=== PATIENT | male | born 1950 | race American Indian/Alaskan Native ===

== ENCOUNTER 2016-08-23 23:16 | Emergency (ER) | payer OTHER, MEDICARE ==
[2016-08-23 23:47] VITALS: BP 129/80
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
[2016-08-24] MEDS ORDERED: ROXICODONE PO ONE (05:11)
--- NOTE | 2016-08-24 07:52 | XRay Report ---
LUMBOSACRAL SPINE, 3 VIEWS: History: Back pain Findings: Normal bone mineralization. Normal height and alignment of the vertebral bodies. No compression deformity or bone lesion. There is mild to moderate diffuse facet arthropathy which is most pronounced at L4-5 and L5-S1. There is moderate disc space narrowing at L5-S1. The remaining disc levels are within normal limits. Impression: Lumbar spondylosis as described. No acute process noted.
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
== END 2016-08-24 08:04 | disposition home or self-care (01) ==
LOC: ED 23:16
DX: S39.012A Strain of muscle, fascia and tendon of lower back, initial encounter (principal); M25.511 Pain in right shoulder; I10 Essential (primary) hypertension; I25.2 Old myocardial infarction; I50.9 Heart failure, unspecified; V89.2XXA Person injured in unspecified motor-vehicle accident, traffic, initial encounter; Y93.9 Activity, unspecified; Y99.9 Unspecified external cause status; Y92.410 Unspecified street and highway as the place of occurrence of the external cause; Z88.6 Allergy status to analgesic agent
CPT/HCPCS: 72100

== ENCOUNTER 2017-04-18 16:02 | Emergency (ER) | payer MEDICARE | END 2017-04-18 17:00 | LOC: ED 16:02 | DX: M79.606 Pain in leg, unspecified (principal); Z53.21 Procedure and treatment not carried out due to patient leaving prior to being seen by health care provider ==

== ENCOUNTER 2017-08-21 13:07 | Emergency (ER) | payer MEDICARE ==
[2017-08-21 14:06] VITALS: BP 110/69
[2017-08-21 15:53] LABS: Basophils % (Auto) 0.8 % (0.0-1.8); Eosinophils # (Auto) 0.1 K/mm3 (0.0-0.4); Eosinophils % (Auto) 2.7 % (0.0-4.3); Hematocrit 38.1 % (35.5-45.6); Hemoglobin 12.8 gm/dl (11.8-15.2); Lymphocytes # (Auto) 2.5 K/mm3 (1.2-5.4); Lymphocytes % (Auto) 45.1 % (13.4-35.0); Mean Corpuscular HGB Conc 34 % (32-34); Mean Corpuscular Hemoglobin 32 pg (28-32); Mean Corpuscular Volume 94 fl (84-94); Monocytes # (Auto) 0.6 K/mm3 (0.0-0.8); Platelet Count 168 K/mm3 (140-440); Red Blood Count 4.05 M/mm3 (3.65-5.03); Red Cell Distribution Width 14.1 % (13.2-15.2)
[2017-08-21 16:07] LABS: Alanine Aminotransferase 30 units/L (7-56); Albumin 3.9 g/dL (3.9-5); BUN/Creatinine Ratio 15; Blood Urea Nitrogen 17 mg/dL (9-20); Calcium 9.4 mg/dL (8.4-10.2); Hemolysis Index 4
[2017-08-21] MEDS ORDERED: LASIX PO ONE (16:57)
[2017-08-21] MEDS ORDERED: PROVENTIL IH ONE (16:58)
--- NOTE | 2017-08-21 17:00 | Event Note ---
Date: 08/21/17 Patient is a 67-year-old male comes in with shortness of breath history of heart failure. I will order troponin, blood work, chest xray and ekg and breathing treatment on him and give him oral Lasix.
--- NOTE | 2017-08-21 17:05 | XRay Report ---
FINAL REPORT EXAM: XR CHEST ROUTINE 2V HISTORY: dyspnea TECHNIQUE: PA and lateral views of the chest PRIORS: None. FINDINGS: Lines, tubes, and devices: Single lead left subclavian pacemaker terminates in the right ventricle. Lungs and pleura: Trachea is normal in position. Lungs are clear of infiltrate, pleural effusion, vascular congestion, or pneumothorax. Cardiomediastinal silhouette: Cardiac and mediastinal silhouettes are unremarkable. Aorta is unfolded, likely age related. Elevation of the left hemidiaphragm is noted. Other: Bony structures are intact. IMPRESSION: No acute cardiopulmonary process seen.
[2017-08-21] MEDS ORDERED: LIDODERM 5% TD ONE (17:20)
== END 2017-08-22 01:15 | disposition left against medical advice (07) ==
LOC: ED 13:07
DX: M54.9 Dorsalgia, unspecified (principal); R06.02 Shortness of breath; Z53.21 Procedure and treatment not carried out due to patient leaving prior to being seen by health care provider
CPT/HCPCS: 36415; 71046; 80053; 83880; 85025; 93005; 93010

== ENCOUNTER 2017-12-20 18:39 | Emergency (ER) | payer MEDICARE ==
[2017-12-20 19:04] VITALS: BP 120/70
[2017-12-20] MEDS ORDERED: ASPIRIN PO ONE (19:04)
[2017-12-20 19:40] LABS: BUN/Creatinine Ratio 11; Blood Urea Nitrogen 11 mg/dL (9-20); Calcium 8.7 mg/dL (8.4-10.2); Hemolysis Index 23
== END 2017-12-20 19:00 | disposition left against medical advice (07) ==
LOC: ED 18:39
DX: R06.02 Shortness of breath (principal); R07.9 Chest pain, unspecified; Z53.21 Procedure and treatment not carried out due to patient leaving prior to being seen by health care provider
CPT/HCPCS: 36415; 80048; 83880; 84484; 93005; 93010

== ENCOUNTER 2018-07-29 05:39 | Emergency (ER) | payer MEDICARE ==
[2018-07-29 06:11] VITALS: BP 0/0
--- NOTE | 2018-07-29 06:40 | Emergency Department Report ---
ED CPR HPI - General Chief Complaint: Cardiac Arrest/CPR Stated Complaint: CARDIAC ARREST Time Seen by Provider: 07/29/18 06:33 Source: patient Mode of arrival: Stretcher Limitations: Physical Limitation - History of Present Illness Initial Comments: 67-year-old male with multiple medical problems presents also with shortness of breath. Upon EMS arrival patient was in distress and was briefly placed on CPAP. Patient's symptoms quickly deteriorated and he became apneic and pulseless. Patient was intubated with a Mathieu airway. He received 2 defibri llator shocks for V. tach/v fib, EMS reports that patient's own AICD was also shocking the patient. Patient presents with PEA and apnea MD Complaint: stopped breathing Place: home Bystander CPR Performed: Yes Number of Shocks Delivered: 2 Downtime Before ACLS Arrival (mins): 0 Initial Findings in the Field: alert ROSC in the Field: No Associated Injuries: No Associated Symptoms: shortness of breath Treatments Prior to Arrival: other airway device (mathieu tube), defribrillated shocks # (2), epinephrine mgs # (2) - Related Data Home Medications Medication Instructions Recorded Confirmed Last Taken RX: Allopurinol [Zyloprim] 100 mg PO QDAY 01/15/18 05/03/18 05/02/18 RX: Aspirin [Adult Low Dose 81 mg PO QDAY 01/15/18 05/03/18 05/02/18 Aspirin EC] RX: Atorvastatin Calcium [Lipitor] 40 mg PO DAILY 01/15/18 05/03/18 Unknown RX: Cholecalciferol Vit D3 1,000 unit PO QDAY 01/15/18 05/03/18 Unknown [Vitamin D3] RX: Clopidogrel Bisulfate [Plavix] 75 mg PO QDAY 01/15/18 05/03/18 05/02/18 Previous Rx's Medication Instructions Recorded Last Taken Type RX: Amiodarone [Cordarone 200 MG 200 mg PO BID #60 tablet 01/18/18 05/02/18 Rx TAB] RX: Famotidine [Pepcid] 20 mg PO BID #60 tablet 04/18/18 Unknown Rx RX: Torsemide [Demadex] 20 mg PO DAILY #30 tablet 05/08/18 Unknown Rx Allergies Allergy/AdvReac Type Severity Reaction Status Date / Time Penicillins Allergy Shortness Verified 05/03/18 07:13 of Breath simvastatin Allergy Itching Verified 05/03/18 07:13 acetaminophen [From Tylenol] AdvReac Unknown Verified 05/03/18 07:13 ibuprofen [From Motrin] AdvReac Shortness Verified 05/03/18 07:13 of Breath ED Review of Systems ROS: Stated complaint: CARDIAC ARREST Other details as noted in HPI Comment: All other systems reviewed and negative ED Past Medical Hx - Past Medical History Previous Medical History?: Yes Hx Hypertension: Yes Hx Heart Attack/AMI: Yes (S/P stents placement at [facility]) Hx Congestive Heart Failure: Yes Hx Diabetes: Yes Hx Asthma: No Hx COPD: Yes Hx HIV: No Additional medical history: pacemaker, hep C-resolved, CPAP at home, Home 02 user - Surgical History Past Surgical History?: Yes Hx Pacemaker: Yes Hx Internal Defibrillator: Yes Additional Surgical History: testicle removed - Social History Smoking Status: Unknown if ever smoked - Medications Home Medications: Home Medications Medication Instructions Recorded Confirmed Last Taken Type RX: Allopurinol [Zyloprim] 100 mg PO QDAY 01/15/18 05/03/18 05/02/18 History RX: Aspirin [Adult Low Dose 81 mg PO QDAY 01/15/18 05/03/18 05/02/18 History Aspirin EC] RX: Atorvastatin Calcium [Lipitor] 40 mg PO DAILY 01/15/18 05/03/18 Unknown History RX: Cholecalciferol Vit D3 1,000 unit PO QDAY 01/15/18 05/03/18 Unknown History [Vitamin D3] RX: Clopidogrel Bisulfate [Plavix] 75 mg PO QDAY 01/15/18 05/03/18 05/02/18 History RX: Amiodarone [Cordarone 200 MG 200 mg PO BID #60 tablet 01/18/18 05/03/18 05/02/18 Rx TAB] RX: Famotidine [Pepcid] 20 mg PO BID #60 tablet 04/18/18 05/03/18 Unknown Rx RX: Torsemide [Demadex] 20 mg PO DAILY #30 tablet 05/08/18 Unknown Rx ED Physical Exam - General Limitations: Physical Limitation - Other Other exam information: General: Unresponsive Head exam: Atraumatic, normocephalic Eyes exam: Pupils fixed and dilated ENT: Orally intubated with Mathieu airway Neck exam: Normal inspection Respiratory exam: Apneic, equal breath sounds with bagging Cardiovascular: Pulseless Abdomen: Soft, nondistended Extremity: No deformity or spontaneous movement Back: Normal Inspection Neurologic: GCS equals 3 Skin: Warm, dry, intact ED Course Vital Signs 07/29/18 06:06 Temperature 0 F L Pulse Rate 0 L Respiratory 0 L Rate Blood Pressure 0/0 O2 Sat by Pulse 0 L Oximetry - EJ/Peripheral Line Neck R Time Out Performed: Yes Indications: multiple IV sites needed Skin Cleansed in Sterile Fashion: Yes Size: 18 Dressing Placed: Tegaderm, tape Patient Tolerated Procedure: well, no complications ED Medical Decision Making - Medical Decision Making Patient was treated in the ED with continued ACLS protocol. Remainder PEA is deteriorated to asystole despite receiving 2 additional epinephrine and sodium bicarbonate. Accu-Chek was in normal range. Unfortunately patient did not survive and his was informed of patient's in the ED. Time of 5:48 am. - Differential Diagnosis COPD, CHF, PE, OR Critical Care Time: Yes Critical care time in (mins) excluding proc time.: 20 Critical care attestation.: If time is entered above; I have spent that time in minutes in the direct care of this critically ill patient, excluding procedure time. ED Disposition Clinical Impression: Cardiopulmonary arrest Disposition: DC-20 Is pt being admited?: No Condition: Stable Time of Disposition: 06:40
[2018-07-29] MEDS ORDERED: ADRENALIN ONE (06:42)
== END 2018-07-29 08:59 ==
LOC: ED 05:39
DX: I46.9 Cardiac arrest, cause unspecified (principal); I11.0 Hypertensive heart disease with heart failure; E11.9 Type 2 diabetes mellitus without complications; J44.9 Chronic obstructive pulmonary disease, unspecified; Z95.0 Presence of cardiac pacemaker; Z79.82 Long term (current) use of aspirin; Z88.0 Allergy status to penicillin; Z88.5 Allergy status to narcotic agent
CPT/HCPCS: 36569; 82962; 99285; J0171; 92950